=== PATIENT | female | born 1940 | race Caucasian/White ===

== ENCOUNTER → 2024-02-21 12:32 | Outpatient (REF) | payer MEDICARE, OTHER, SELFPAY | LOC: RCS 12:32 | PROVIDERS: ATTENDING PHYSICIAN Internal Medicine Cardiovascular Disease; FAMILY PHYSICIAN Family Medicine | DX: I48.0 Paroxysmal atrial fibrillation (principal); I51.7 Cardiomegaly | CPT/HCPCS: 93306; Q9950 ==